=== PATIENT | male | born 1975 | race Caucasian/White ===

== ENCOUNTER 2017-06-27 20:09 | Emergency (ER) | payer BC ==
[~2017-06-27] VITALS: Ht 193 cm; Wt 105.0 kg
[2017-06-27 20:26] VITALS: BP 142/88
[2017-06-27] MEDS ORDERED: PERCOCET 5/31 TABLET PO (21:49)
[2017-06-27] MEDS ORDERED: MOTRIN600 MG PO (21:49)
== END 2017-06-27 22:24 | disposition home or self-care (01) ==
LOC: EME → EDBD 20:09 → EME 20:09
DX: S53.104A Unspecified dislocation of right ulnohumeral joint, initial encounter (principal); M25.421 Effusion, right elbow; Y93.61 Activity, american tackle football; W51.XXXA Accidental striking against or bumped into by another person, initial encounter
CPT/HCPCS: 73080; 99281; 99284